=== PATIENT | female | born 1950 | race Caucasian/White ===

== ENCOUNTER → 2023-10-29 11:16 | Outpatient (REF) | payer MEDICARE, OTHER, SELFPAY | LOC: MRI 3T 11:16 | PROVIDERS: ATTENDING PHYSICIAN Specialist | DX: M25.512 Pain in left shoulder (principal) | CPT/HCPCS: 73221 ==

== ENCOUNTER → 2023-11-06 15:02 | Outpatient (REF) | payer MEDICARE, OTHER, SELFPAY | LOC: MRI 3T 15:02 | PROVIDERS: ATTENDING PHYSICIAN Orthopaedic Surgery | DX: M25.561 Pain in right knee (principal) | CPT/HCPCS: 73721 ==